=== PATIENT | male | born 1985 | race Caucasian/White ===

== ENCOUNTER 2017-10-27 13:01 | Emergency (ER) | payer BC ==
[~2017-10-27] VITALS: Ht 180.3 cm; Wt 154.2 kg
[2017-10-27 13:07] VITALS: BP 158/94
--- NOTE | 2017-10-27 13:20 | NUR ---
32/M C/O HEADACHE AND FEVER X2 DAYS. HX HTN. AOX4, AMBULATES WITH STEADY GAIT. VSS.
--- NOTE | 2017-10-27 13:42 | NUR ---
Patient being evaluated by physician at bedside.
[2017-10-27] MEDS ORDERED: ACETAMINOPHEN EXTRA STRENGTH 500 MG TAB PO ONE (13:50)
[2017-10-27] MEDS ORDERED: IBUPROFEN 600 MG TAB PO ONE (13:50)
[2017-10-27] MEDS ORDERED: ceFAZolin 1,000 MG VIAL IM ONE (13:50)
--- NOTE | 2017-10-27 13:54 | NUR ---
INFLUENZA SWAB COLLECTED AND SENT TO LAB.
--- NOTE | 2017-10-27 13:55 | NUR ---
PHARMACY CALLED TO REQUEST STERILE WATER FOR RECONSTITUTION OF ANCEF. PHARMACY WILL MIX MEDICATION AND BE BROUHGT DOWN TO ED FOR ADMINISTRATION.
[2017-10-27] MEDS ORDERED: ceFAZolin 1,000 MG VIAL IM SCH (14:02)
--- NOTE | 2017-10-27 14:55 | NUR ---
Patient appears to be resting comfortably in bed. VSS.
[2017-10-27 15:18] VITALS: BP 140/90
--- NOTE | 2017-10-27 15:18 | NUR ---
Patient discharged with v/s stable. Written and verbal after care instructions given and explained. Patient alert, oriented and verbalized understanding of instructions. Ambulatory with steady gait. All questions addressed prior to discharge. ID band removed. Patient advised to follow up with PMD. Rx of Cephalexin 500mg and Bactrim DS 800mg-160mg given. Patient educated on indication of medication including possible reaction and side effects. Opportunity to ask questions provided and answered.
== END 2017-10-27 15:18 | disposition home or self-care (01) ==
LOC: MED 13:01
DX: G44.89 Other headache syndrome (principal); L03.116 Cellulitis of left lower limb; I10 Essential (primary) hypertension
CPT/HCPCS: 36415; 81002; 87804; 96372; 99284; J0690

== ENCOUNTER 2017-10-28 20:17 | Emergency (ER) | payer BC ==
[~2017-10-28] VITALS: Ht 180.3 cm; Wt 165.8 kg
[2017-10-28 20:36] VITALS: BP 158/92
[2017-10-28] MEDS ORDERED: IBUPROFEN 800 MG TAB PO ONE (20:40)
[2017-10-28] MEDS ORDERED: IBUPROFEN 800 MG TAB ONE (20:42)
[2017-10-28 21:14] VITALS: BP 163/94
== END 2017-10-28 20:55 | disposition home or self-care (01) ==
LOC: MED 20:17
DX: L03.116 Cellulitis of left lower limb (principal); I10 Essential (primary) hypertension
CPT/HCPCS: 99283

== ENCOUNTER 2017-11-03 19:01 | Inpatient (IN) | payer BC ==
[~2017-11-03] VITALS: Ht 180.3 cm; Wt 163.3 kg
[2017-11-03 19:22] VITALS: BP 147/93
--- NOTE | 2017-11-03 21:50 | NUR ---
32 YO M PATIENT PRESENTS TO ED WITH LEFT LOWER LEG REDNESS WITH SWELLING. PT STATES HE WAS SEEN X1WK AGO FOR SAME ISSUE AND HAS BEEN TAKING HIS ABX PRESCRIBED BUT THE REDNESS AND SWELLING HAS GOTTEN WORSE . DENIES N/V/D; SKIN IS PINK/WARM/DRY, WITH NOTABLE REDNESS TO LEFT LOWER LEG; AAOX4 WITH EVEN AND STEADY GAIT; LUNGS CLEAR BL; HR EVEN AND REGULAR; PT DENIES ANY FEVER, CP, SOB, OR COUGH AT THIS TIME; PATIENT STATES PAIN OF 7/10 AT THIS TIME; VSS; PATIENT POSITIONED FOR COMFORT; HOB ELEVATED; BEDRAILS UP X2; BED DOWN. ER MD MADE AWARE OF PT STATUS.
--- NOTE | 2017-11-03 21:50 | NUR ---
PT AMBULATED TO BED 2
[2017-11-03] MEDS ORDERED: VANCOMYCIN 1,000 MG in DEXTROSE 5% 250 ML IV ONE (22:25)
[2017-11-03] MEDS ORDERED: VANCOMYCIN 1,000 MG VIAL ONE (22:31)
[2017-11-03 22:49] LABS: HEMATOCRIT 38.8 % (36-52); HEMOGLOBIN 12.7 g/dL (12.0-18.0); MEAN CORPUSCULAR HEMOGLOBIN 28 pg (27-31); MEAN CORPUSCULAR HGB CONC 33 g/dL (33-37); MEAN CORPUSCULAR VOLUME 86.4 fL (80-94); PLATELET COUNT (AUTO) 371 K/uL (140-450); RED BLOOD CELL COUNT(AUTO) 4.49 MIL/uL (4.20-6.10); RED CELL DISTRIBUTION WIDTH 14.2 % (11.6-13.7); WHITE BLOOD COUNT (AUTO) 12.6 K/uL (4.8-10.8)
[2017-11-03 23:08] LABS: PROTHROMBIN TIME 12.1 secs (10.8-13.4)
--- NOTE | 2017-11-03 23:13 | NUR ---
PT RESTING IN BED, ON MONITOR, VSS. NO S/S OF DISTRESS NOTED AT THE MOMENT.
[2017-11-03 23:15] LABS: ALBUMIN 2.5 g/dL (3.4-5.0); ANION GAP 15.6 (8-16); CARBON DIOXIDE 21.7 mmol/L (21-32); POTASSIUM 4.3 mmol/L (3.5-5.1); TOTAL BILIRUBIN 0.3 mg/dL (0.0-1.0)
[2017-11-03 23:21] LABS: EOSINOPHILS % (MANUAL) 4 % (0-4); LYMPHOCYTES % (MANUAL) 19 % (20-46); METAMYELOCYTES % 3 % (0-0); MONOCYTES % (MANUAL) 4 % (5-12)
[2017-11-03 23:23] LABS: CREATININE 4.1 mg/dL (0.7-1.3)
[2017-11-04] MEDS ORDERED: cloNIDine 0.1 MG TAB PO ONE (00:25)
[2017-11-04] MEDS ORDERED: ONDANSETRON 4 MG/2 ML VIAL IVP PRN (00:40)
[2017-11-04] MEDS ORDERED: ACETAMINOPHEN 325 MG TAB PO PRN (00:40)
[2017-11-04] MEDS ORDERED: HYDROcodone/APAP 7.5/325 MG 1 TAB PO PRN (00:40)
--- NOTE | 2017-11-04 01:00 | NUR ---
Patient will be admitted to care of DR BOUDREAUX. Admited to TELE. Will go to room 105B. Belongings list completed. Report to RADHA BLANCHARD.
--- NOTE | 2017-11-04 01:05 | NUR ---
Admitted from ED , with chief complaint of LEFT LEG PAIN. Pt is a 32 y/o ,Male, Awake, Alert and Oriented, Appropriate, oriented to call light, bed, phone,television, bathroom, smoking policy, visiting hours, procedures, ID bracelet on. Belongings list checked. Mother at bedside. Initial assessment done. Vital signs checked. MRSA swab collected.
--- NOTE | 2017-11-04 01:07 | NUR ---
PT DENIES ANY PAIN AT THIS TIME. PLAN OF CARE DISCUSSED AND VERBALIZED UNDERSTANDING.
[2017-11-04 01:10] VITALS: BP 158/110
[2017-11-04 01:10] LABS: FREE T4 (FREE THYROXINE) 1.23 ng/dL (0.76-1.46); PHOSPHORUS 4.9 mg/dL (2.5-4.9); THYROID STIMULATING HORMONE 3.27 uIU/mL (0.34-3.74)
--- NOTE | 2017-11-04 01:10 | NUR ---
SEEN PT GOT UP TO THE BATHROOM. WILL TAKE PICTURE OF LEFT LEG.
[2017-11-04 02:20] VITALS: BP 123/58
[2017-11-04] MEDS ORDERED: CLINDAMYCIN 600 MG/4 ML VIAL ONE (04:30)
[2017-11-04 04:45] VITALS: BP 146/83
--- NOTE | 2017-11-04 04:45 | NUR ---
SEEN PT AWAKE. VITAL SIGNS CHECKED AND WNL. PT NOTICED THAT HE HAS RASHES ON HIS WRIST. PT STATES IT STARTING TO ITCH TOO. PT DENIES ANY OTHER SYMPTOMS. WILL NOTIFY .
[2017-11-04] MEDS: NACL 0.9% 1,000 ML IV SCH ×2 (04:49→21:43)
[2017-11-04] MEDS: CLINDAMYCIN 600 MG in DEXTROSE 5% 50 ML IV SCH ×2 (04:49→12:41)
[2017-11-04] MEDS ORDERED: diphenhydrAMINE 50 MG/ML VIAL IVP ONE (05:10)
--- NOTE | 2017-11-04 05:10 | NUR ---
CALLED AND SPOKE TO DR MATHEW AND INFORMED HER OF PT'S RASHES. TOLD HER THAT PT HAD VANCOMYCIN EARLIER IN ED. SHE SAID SHE'LL SEE THE PATIENT.
--- NOTE | 2017-11-04 06:05 | NUR ---
SEEN PT SLEEPING SOUNDLY. MOTHER AT BEDSIDE. MOTHER BROUGHT PT'S HOME MEDS WHICH PT SAID HE DIDN'T TAKE A DOSE YESTERDAY. HOME MEDICATION RECONCILED. PT DENIES ANY PAIN BUT STILL ITCHING. BENADRYL 25MG IVPX1 GIVEN ORDERED. TEACHINGS PROVIDED. PT VERBALIZED UNDERSTANDING. WILL CONTINUE TO MONITOR.
[2017-11-04] MEDS ORDERED: SULF1TAB12 PO (06:11)
[2017-11-04] MEDS ORDERED: CARV25TA PO (06:11)
[2017-11-04] MEDS ORDERED: SULF-58 PO (06:11)
[2017-11-04 07:09] LABS: APPEARANCE,URINE CLEAR (CLEAR); BILIRUBIN,URINE NEGATIVE (NEGATIVE); BLOOD, URINE 1+ (NEGATIVE); COLOR,URINE YELLOW (YELLOW); LEUKOCYTE ESTERASE ,URINE NEGATIVE (NEGATIVE); NITRITE, URINE NEGATIVE (NEGATIVE); PH,URINE 5.5 (5.0-9.0); UGLUCOSE NEGATIVE (NEGATIVE)
--- NOTE | 2017-11-04 07:25 | NUR ---
RECEIVED PATIENT REPORT FROM BEDSIDE. PATIENT ASLEEP ON HIS RIGHT LATERAL SIDE. PATIENT AROUSABLE TO NAME. PATIENT FAMILY MEMBER AT BEDSIDE. PATIENT HAS AN IV NOTED ON HIS RIGHT HAND 20 G RUNNING NACL AT 100ML/HR. PATIENT DOES NOT PRESENT WITH ANY PAIN AT THIS TIME. PATIENT'S LEFT LEG HAS REDNESS AND APPEARS SWOLLEN. UPDATED BOARD IN PATIENT'S ROOM AND PUT CALL LIGHT WITHIN REACH OF PATIENT. WILL CONTINUE TO MONITOR PATIENT.
[2017-11-04 07:53] LABS: BARBITURATE, URINE NEG. ng/ml (NEG <=200); BENZODIAZEPINE, URINE NEG. ng/mL (NEG <=200); CANNABINOID, URINE NEG. ng/mL (NEG <=50); COCAINE, URINE NEG. ng/mL (NEG <=300); OPIATE, URINE NEG. ng/mL (NEG <=2000); PHENCYCLIDINE SCREEN,URINE NEG. ng/mL (NEG <=25)
[2017-11-04 08:00] VITALS: BP 141/94
[2017-11-04] MEDS: LACTOBACILLUS RHAMNOSUS GG 1 EACH CAP PO SCH (08:19)
[2017-11-04] MEDS: DOCUSATE SODIUM 100 MG GELCAP PO SCH ×2 (09:00→21:00)
--- NOTE | 2017-11-04 09:17 | NUR ---
PT AWAKE AT THIS TIME. PATIENT ABLE TO EAT WELL. PATIENT FAMILY MEMBER AT BEDSIDE. PATIENT SAYS THAT HE HAS PAIN WHILE APPLYING PRESSURE ON HIS LEFT LEG. INSTRUCTED PATIENT TO CALL WHEN HE NEEDS HELP AMBULATING. PATIENT UNDERSTOOD INSTRUCTIONS. WILL CONTINUE TO MONITOR PATIENT.
[2017-11-04 10:04] LABS: RBC,URINE 0-5 (RARE) /HPF (0-5); WBC,URINE 0-5 (RARE) /HPF (0-5)
--- NOTE | 2017-11-04 10:15 | NUR ---
PATIENT AMBULATED FROM THE RESTROOM BACK TO THE BED. PATIENT'S HEART RATE SLIGHTLY ELEVATED AT 110. PATIENT IS ASYMPTOMATIC AT THIS TIME. WILL CONTINUE TO MONITOR PATIENT.
--- NOTE | 2017-11-04 11:36 | NUR ---
PATIENT HAS BEEN SCREENED AND CATEGORIZED HIGH NUTRITION RISK. PATIENT WILL BE SEEN WITHIN 1-2 DAYS OF ADMISSION. 11/04/17 - 11/05/[address]
--- NOTE | 2017-11-04 12:45 | NUR ---
CM NOTE PER TRANSITIONAL CARE LIAISON JESSICA, SHE HAS SPOKEN WITH DEENA OF [facility] PH# [phone] [facility],3 WHO STATED TO FAX REVIEWS TO [phone], REF# [id number]. INITIAL REVIEW FAXED TO [facility] [phone] PH# [phone] [facility],3,3
--- NOTE | 2017-11-04 12:46 | NUR ---
PATIENT AWAKE AT THIS TIME IN HIGH FOWLERS POSITION. PATIENT IS ON PHONE. PATIENT FAMILY MEMBER AT BEDSIDE. NOW RESPIRATORY DEPRESSION OR DISTRESS. NO PAIN NOTED. WILL CONTINUE TO MONITOR PATIENT.
--- NOTE | 2017-11-04 13:55 | NUR ---
PATIENT ASLEEP AT THIS TIME. FAMILY MEMBER AT BEDSIDE. NO RESPIRATORY DISTRESS OR RESPIRATORY DEPRESSION. WILL CONTINUE TO MONITOR PATIENT.
--- NOTE | 2017-11-04 15:00 | NUR ---
PATIENT AWAKE AT THIS TIME. PATIENT LAYING IN LEFT LATERAL POSITION WATCHING TELEVISION. NO COMPLAINTS OF PAIN OR RESPIRATORY DISTRESS. WILL CONTINUE TO MONITOR PATIENT.
[2017-11-04] MEDS ORDERED: diphenhydrAMINE 50 MG/ML VIAL IVP SCH (15:19)
--- NOTE | 2017-11-04 15:52 | NUR ---
11/04/17 RD INITIAL ASSESSMENT COMPLETED PLEASE REFER TO NUTRITION ASSESSMENT UNDER CARE ACTIVITY FOR ESTIMATED NUTRITIONAL NEEDS. 1. CONTINUE CARDIAC AND RENAL DIET TOLERATED 2. RD PROVIDED CARDIAC AND RENAL DIET EDUCATION. 3. RD TO FOLLOW-UP 2-3 DAYS, HIGH RISK SASCHA TAVARES, WENCESLAO
[2017-11-04 16:00] VITALS: BP 142/90
--- NOTE | 2017-11-04 16:08 | NUR ---
PATIENT PRESENTS WITH RED BUMPS THROUGHOUT HIS BODY. PATIENT SAYS, "THE BUMPS ARE ITCHY". ORDERED BENADRYL X1 DOSE FOR PATIENT. ADMINISTERED BENADRYL IVP TO PATIENT.
--- NOTE | 2017-11-04 18:36 | NUR ---
PATIENT AWAKE AT THIS TIME WATCHING VIDEOS ON HIS PHONE. NO COMPLAINTS OF PAIN AT THIS TIME. WILL CONTINUE TO MONITOR PATIENT.
--- NOTE | 2017-11-04 19:10 | NUR ---
RECEIVED PATIENT REPORT AT BEDSIDE. FAMILY MEMBERS PRESENT IN THE ROOM. PATIENT AWAKE, ALERT AND ORIENTED. NO S/S OF DISTRESS. ERYTHEMA AND SWELLING NOTED TO THE LEFT LEG. RASHES NOTED TO THE LEFT HAND AND UPPER BACK. SKIN IS INTACT. PATIENT REPORTS TOLERABLE PAIN. PATIENT REFUSES TO TAKE PAIN MEDICATION AT THIS TIME. IV LINE NOTED TO THE LEFT HAND WITH IVF INFUSING WELL. BED LOWERED WITH CALL LIGHT WITHIN REACH. WILL CONTINUE TO MONITOR
--- NOTE | 2017-11-04 19:19 | NUR ---
GAVE REPORT TO NIGHTSHIFT NURSE AT BEDSIDE. PATIENT IN STABLE CONDITION.
--- NOTE | 2017-11-04 19:30 | NUR ---
MADE DR MATHEW AWARE OF PATIENT'S RASHES. DR ALVAREZ PUT IN ORDERS
[2017-11-04] MEDS ORDERED: diphenhydrAMINE 50 MG/ML VIAL IVP PRN (19:40)
[2017-11-04 20:00] VITALS: BP 129/80
[2017-11-04] MEDS ORDERED: ceFAZolin 1,000 MG VIAL ONE (21:37)
--- NOTE | 2017-11-04 21:58 | NUR ---
PATIENT ASLEEP IN BED. NO S/S OF DISTRESS NOTED
[2017-11-05] VITALS: BP 144/84
[2017-11-05] MEDS: NACL 0.9% 1,000 ML IV SCH ×2 (02:55→09:50)
[2017-11-05 07:04] LABS: HEMATOCRIT 39.3 % (36-52); HEMOGLOBIN 13.1 g/dL (12.0-18.0); MEAN CORPUSCULAR HEMOGLOBIN 29 pg (27-31); MEAN CORPUSCULAR HGB CONC 33 g/dL (33-37); MEAN CORPUSCULAR VOLUME 86.5 fL (80-94); PLATELET COUNT (AUTO) 336 K/uL (140-450); RED BLOOD CELL COUNT(AUTO) 4.54 MIL/uL (4.20-6.10); RED CELL DISTRIBUTION WIDTH 14.4 % (11.6-13.7); WHITE BLOOD COUNT (AUTO) 10.1 K/uL (4.8-10.8)
[2017-11-05 07:12] LABS: ANION GAP 15.8 (8-16); CARBON DIOXIDE 21.6 mmol/L (21-32); CREATININE 3.5 mg/dL (0.7-1.3); POTASSIUM 4.4 mmol/L (3.5-5.1)
[2017-11-05 07:16] LABS: MAGNESIUM 2.1 mg/dL (1.8-2.4)
--- NOTE | 2017-11-05 07:17 | NUR ---
PATIENT REPORT GIVEN AT BEDSIDE. PATIENT ENDORSED IN STABLE CONDITION
--- NOTE | 2017-11-05 07:17 | NUR ---
RECEIVED REPORT AT BEDSIDE FROM NIGHTSHIFT NURSE. UPDATED ON PATIENT'S CONDITION AND CHANGE OF ANTIBIOTICS FOR PATIENT. PATIENT IV ON LEFT HAND 18 G SALINE LOCKED. PATIENT IS AWAKE AT THIS TIME. ALERT AND ORIENTEDX4 AT THIS TIME. NO COMPLAINTS OF PAIN AND NO RESPIRATORY DISTRESS NOTED. CALL LIGHT WITHIN REACH OF PATIENT. UPDATED BOARD IN PATIENT'S ROOM. WILL CONTINUE TO MONITOR PATIENT.
[2017-11-05 08:00] VITALS: BP 121/77
[2017-11-05 08:39] LABS: EOSINOPHILS % (MANUAL) 9 % (0-4); LYMPHOCYTES % (MANUAL) 20 % (20-46); MONOCYTES % (MANUAL) 6 % (5-12)
[2017-11-05] MEDS: LACTOBACILLUS RHAMNOSUS GG 1 EACH CAP PO SCH (08:44)
[2017-11-05] MEDS: DOCUSATE SODIUM 100 MG GELCAP PO SCH ×2 (09:00→20:43)
--- NOTE | 2017-11-05 09:39 | NUR ---
PATIENT ASLEEP AT THIS TIME. NO COMPLAINTS OF PAIN. NO RESPIRATORY DISTRESS OR RESPIRATORY DEPRESSION. WILL CONTINUE TO MONITOR PATIENT.
--- NOTE | 2017-11-05 11:35 | NUR ---
PATIENT AWAKE AT THIS TIME. NO COMPLAINTS OF PAIN AT THIS TIME. NO RESPIRATORY DISTRESS NOTED. WILL CONTINUE TO MONITOR PATIENT.
--- NOTE | 2017-11-05 13:00 | NUR ---
CM NOTE RECEIVED NOTIFICATION FROM MEDICAL MANAGEMENT OF [employer], APPROVED FOR 5 DAYS, AUTH# [id number], NEXT REVIEW DATE 11-09-17 OR DC SUMMARY
--- NOTE | 2017-11-05 13:06 | NUR ---
PATIENT SHOWERING AT THIS TIME. PATIENT ABLE TO AMBULATE WELL. ASKED PATIENT TO CALL IF HE NEEDS HELP WITH ANYTHING.
[2017-11-05 16:00] VITALS: BP 147/94
--- NOTE | 2017-11-05 16:30 | NUR ---
PATIENT AWAKE AT THIS TIME. NO COMPLAINTS OF PAIN. FAMILY MEMBERS AT BEDSIDE. PATIENT SHOWS NO SIGNS OF DISTRESS. WILL CONTINUE TO MONITOR PATIENT.
--- NOTE | 2017-11-05 19:30 | NUR ---
ASSUMED CARE OF PATIENT, AWAKE, ALERT AND ORIENTED. NO COMPLAINS. CALL LIGHT WITHIN REACH. FAMILY AT BEDSIDE.
--- NOTE | 2017-11-05 20:00 | NUR ---
CARE BOARD UPDATED. PLAN OF CARE DISCUSSED WITH PATIENT AND FAMILY MEMBER, VERBALIZED UNDERSTANDING WELL. CALL LIGHT WITHIN REACH.
--- NOTE | 2017-11-05 20:10 | NUR ---
GAVE REPORT TO NIGHTSHIFT NURSE AT BEDSIDE. PATIENT IN STABLE CONDITION.
[2017-11-05 23:37] VITALS: BP 130/74
--- NOTE | 2017-11-05 23:51 | NUR ---
AFEBRILE. SLEEPING WELL, EASILY AROUSALE. CALL LIGHT WITHIN REACH. VITAL SIGNS STABLE.
[2017-11-06 07:00] LABS: BASOPHILS % (AUTO) 0.2 % (0.0-2.0); EOSINOPHILS # (AUTO) 0.8 K/uL (0-0.4); EOSINOPHILS % (AUTO) 7.9 % (0.0-4.0); HEMATOCRIT 40.2 % (36-52); HEMOGLOBIN 13.2 g/dL (12.0-18.0); LYMPHOCYTES # (AUTO) 1.8 K/uL (2.0-11.5); LYMPHOCYTES % (AUTO) 17.8 % (20.5-51.1); MEAN CORPUSCULAR HEMOGLOBIN 29 pg (27-31); MEAN CORPUSCULAR HGB CONC 33 g/dL (33-37); MEAN CORPUSCULAR VOLUME 87.1 fL (80-94); MONOCYTES # (AUTO) 0.8 K/uL (0.8-1.0); MONOCYTES % (AUTO) 8.1 % (1.7-9.3); NEUTROPHILS # (AUTO) 6.6 K/uL (1.8-7.7); PLATELET COUNT (AUTO) 361 K/uL (140-450); RED BLOOD CELL COUNT(AUTO) 4.62 MIL/uL (4.20-6.10); RED CELL DISTRIBUTION WIDTH 14.2 % (11.6-13.7)
--- NOTE | 2017-11-06 07:27 | NUR ---
ENDORSED CARE AT BEDSIDE WITH JOSESITO RN, PATIENT IN STABLE CONDITION.
--- NOTE | 2017-11-06 07:30 | NUR ---
RECEIVED REPORT FROM JOB TRAINING SPECIALIST NURSE, PT IS RESTING IN BED, AAOX4, AMBULATORY, NO S/S OF RESPIRATORY DISTRESS OR DISCOMFORT NOTED, PT HAS IV ON HIS LEFT HAND, PATENT, INTACT, FLUSHING WELL, PT HAS LEFT LOWER EXT. CELLULITIS, DISCUSSED PLAN OF CARE WITH PT, PT VERBALIZED UNDERSTANDING, SAFETY/FALL PRECAUTIONS ARE IN PLACE, CALL LIGHT IS WITHIN REACH, FAMILY IS AT BEDSIDE, WILL CONTINUE TO MONITOR.
[2017-11-06 08:00] VITALS: BP 147/87
[2017-11-06 08:00] LABS: CARBON DIOXIDE 22.9 mmol/L (21-32); CREATININE 3.4 mg/dL (0.7-1.3); POTASSIUM 3.9 mmol/L (3.5-5.1)
[2017-11-06 08:11] LABS: MAGNESIUM 1.9 mg/dL (1.8-2.4); PHOSPHORUS 4.4 mg/dL (2.5-4.9)
[2017-11-06] MEDS: LACTOBACILLUS RHAMNOSUS GG 1 EACH CAP PO SCH (08:44)
[2017-11-06] MEDS: DOCUSATE SODIUM 100 MG GELCAP PO SCH ×2 (08:46→21:52)
[2017-11-06] MEDS: NACL 0.9% 1,000 ML IV SCH ×2 (09:50→17:24)
--- NOTE | 2017-11-06 10:10 | NUR ---
PT RESTING IN BED, WATCHING TV, CALL LIGHT WITHIN REACH.
--- NOTE | 2017-11-06 12:35 | NUR ---
PT IS RESTING IN BED, NO S/S OF DISTRESS NOTED, CALL LIGHT WITHIN REACH.
[2017-11-06 17:21] VITALS: BP 149/92
--- NOTE | 2017-11-06 17:45 | NUR ---
PT RESTING IN BED, WATCHING TV, NO S/S OF DISTRESS NOTED, CALL LIGHT WITHIN REACH.
--- NOTE | 2017-11-06 19:20 | NUR ---
ENDORSED PT TO HEATING AND AIR CONDITIONING MECHANIC NURSE FOR CONTINUITY OF CARE. PT STABLE AT THIS TIME.
--- NOTE | 2017-11-06 22:00 | NUR ---
HAS NO C/O PAIN ON LEFT LEG WHERE CELLULITIS IS OBSERVED. ON ANCEF IV ATB FOR LEFT LEG CELLULITIS. NO FEVER, NO EDEMA NOTED.
[2017-11-07] VITALS: BP 140/87
[2017-11-07 06:40] LABS: ANION GAP 14.6 (8-16); BASOPHILS % (AUTO) 0.3 % (0.0-2.0); CARBON DIOXIDE 23.4 mmol/L (21-32); CREATININE 3.2 mg/dL (0.7-1.3); EOSINOPHILS # (AUTO) 0.8 K/uL (0-0.4); EOSINOPHILS % (AUTO) 8.5 % (0.0-4.0); HEMOGLOBIN 13.3 g/dL (12.0-18.0); LYMPHOCYTES % (AUTO) 21.9 % (20.5-51.1); MEAN CORPUSCULAR HEMOGLOBIN 29 pg (27-31); MEAN CORPUSCULAR HGB CONC 33 g/dL (33-37); MEAN CORPUSCULAR VOLUME 86.9 fL (80-94); MONOCYTES # (AUTO) 0.8 K/uL (0.8-1.0); MONOCYTES % (AUTO) 8.8 % (1.7-9.3); NEUTROPHILS # (AUTO) 5.4 K/uL (1.8-7.7); NEUTROPHILS % (AUTO) 60.5 % (42.2-75.2); PLATELET COUNT (AUTO) 309 K/uL (140-450); RED CELL DISTRIBUTION WIDTH 13.8 % (11.6-13.7)
[2017-11-07 06:45] LABS: MAGNESIUM 1.9 mg/dL (1.8-2.4); PHOSPHORUS 4.6 mg/dL (2.5-4.9)
--- NOTE | 2017-11-07 07:15 | NUR ---
RECEIVED REPORT FROM TRAINING PROJECT MANAGER NURSE, PT IS RESTING IN BED, USING HIS CELL PHONE, AAOX4, AMBULATORY, NO S/S OF RESPIRATORY DISTRESS OR DISCOMFORT NOTED, PT HAS IV ON HIS LEFT HAND, PATENT, INTACT, FLUSHING WELL, PT HAS LEFT LOWER EXT. CELLULITIS, DISCUSSED PLAN OF CARE WITH PT, PT VERBALIZED UNDERSTANDING, SAFETY/FALL PRECAUTIONS ARE IN PLACE, CALL LIGHT IS WITHIN REACH, WILL CONTINUE TO MONITOR.
[2017-11-07 08:00] VITALS: BP 144/97
--- NOTE | 2017-11-07 08:00 | NUR ---
PT SITTING UP IN BED EATING BREAKFAST, NO C/O OF PAIN AT THIS TIME. V/S TAKEN PT IV SITE PATENT AND INTACT NO REDNESS NOTED. FAMILY AT BEDSIDE.
[2017-11-07] MEDS ORDERED: CEPH500T PO (08:50)
[2017-11-07] MEDS ORDERED: LACT1.4C PO (08:52)
[2017-11-07] MEDS: DOCUSATE SODIUM 100 MG GELCAP PO SCH (09:32)
[2017-11-07] MEDS: LACTOBACILLUS RHAMNOSUS GG 1 EACH CAP PO SCH (09:33)
--- NOTE | 2017-11-07 09:52 | NUR ---
DUE MEDICATIONS WERE GIVEN, PT TOLERATED WELL, CALL LIGHT WITHIN REACH.
--- NOTE | 2017-11-07 11:30 | NUR ---
CALLED DR. MOSS ON THE RESIDENT PHONE. I LET HIM KNOW THE PATIENT WAS REQUESTING AN OFF WORK NOTE TO EXCUSE HIM FOR ALL NEXT WEEK UNTIL NOVEMBER 15[address] DR[address] MOSS, YES ITS OKAY TO BE OFF FOR A WEEK. PT WAS PROVIDED WITH AN OFF WORK NOTE.
--- NOTE | 2017-11-07 11:40 | NUR ---
DISCHARGE INSTRUCTIONS GIVEN, ID WRIST BAND REMOVED, IV REMOVED, CATHETER TIP INTACT. PT STABLE UPON DISCHARGE ACCOMPANIED BY HIS MOTHER.
--- NOTE | 2017-11-10 09:17 | NUR ---
CM NOTE DISCHARGE SUMMARY FAXED TO [facility] [phone] # [phone] [facility] 1,3,3
== END 2017-11-07 11:40 | disposition home or self-care (01) | DRG 871 ==
LOC: MED 19:01 → MTU 11-04 00:25
PROVIDERS: ADMIT Family Medicine Sports Medicine; ATTEND Family Medicine Sports Medicine
DX: A41.9 Sepsis, unspecified organism (principal); N17.0 Acute kidney failure with tubular necrosis; E43 Unspecified severe protein-calorie malnutrition; L03.116 Cellulitis of left lower limb; E87.1 Hypo-osmolality and hyponatremia; Z68.43 Body mass index [BMI] 50.0-59.9, adult; I16.0 Hypertensive urgency; N18.9 Chronic kidney disease, unspecified; I12.9 Hypertensive chronic kidney disease with stage 1 through stage 4 chronic kidney disease, or unspecified chronic kidney disease; E66.01 Morbid (severe) obesity due to excess calories; E78.2 Mixed hyperlipidemia; E87.8 Other disorders of electrolyte and fluid balance, not elsewhere classified
CPT/HCPCS: 36415; 71045; 76770; 80048; 80053; 80305; 81001; 83036; 83605; 83735; 83880; 84100; 84439; 84443; 85025; 85610; 85730; 87040; 87081; 93005; 93925; 93970; 96365; 96366; 99285; J0690; J1200; J3370; J3490; J7030; J7060; Q0092